=== PATIENT | female | born 1965 | race Caucasian/White ===

== ENCOUNTER 2017-10-06 12:03 | Emergency (ER) | payer SELFPAY ==
[~2017-10-06] VITALS: Ht 182.9 cm; Wt 72.6 kg
[~2017-10-06 12:03] MED LIST: PLAQUENIL PO
[2017-10-06 12:50] LABS: BASOPHILS % (AUTO) 0.6 % (0.0-2.0); EOSINOPHILS # (AUTO) 0.1 K/uL (0.0-0.7); EOSINOPHILS % (AUTO) 1.6 % (0.0-7.0); HEMOGLOBIN 13.8 g/dL (10.9-14.3); LYMPHOCYTES # (AUTO) 1.3 K/uL (20.0-40.0); LYMPHOCYTES % (AUTO) 35.7 % (20.5-51.5); MEAN CORPUSCULAR HEMOGLOBIN 34.5 uug (24.7-32.8); MEAN CORPUSCULAR HGB CONC 35 g/dL (32.3-35.6); MEAN CORPUSCULAR VOLUME 100.1 fL (75.5-95.3); MONOCYTES # (AUTO) 0.3 K/uL (2.0-10.0); MONOCYTES % (AUTO) 8.8 % (0.0-11.0); NEUTROPHILS % (AUTO) 53.3 % (38.5-71.5); PLATELET COUNT (AUTO) 234 K/uL (179-408); RED BLOOD CELL COUNT(AUTO) 3.99 MIL/uL (3.63-4.92); WHITE BLOOD COUNT (AUTO) 3.7 K/uL (3.8-11.8)
[2017-10-06 12:56] LABS: *BILIRUBIN,URIN NEGATIVE (NEGATIVE); *BLOOD, URINE NEGATIVE (NEGATIVE); *CLARITY,URINE CLEAR (CLEAR); *COLOR,URINE LIGHT YELLOW (YELLOW); *KETONES,URINE NEGATIVE (NEGATIVE); *PROTEIN,URINE NEGATIVE (NEGATIVE); *UROBILINOGEN,URINE 0.2 E.U./dl (NORMAL); LEUKOCYTE ESTERASE ,URINE NEGATIVE (NEGATIVE); NITRITE, URINE NEGATIVE (NEGATIVE); UGLUCOSE NEGATIVE (NEGATIVE)
[2017-10-06 13:01] LABS: CARBON DIOXIDE 27 mmol/L (21-32); CHLORIDE 105 mmol/L (98-107); CREATININE 0.6 mg/dL (0.6-1.3); GLUCOSE 93 mg/dL (74-106); UREA NITROGEN, BLOOD 9 mg/dL (7-18)
[2017-10-06 13:02] LABS: ETHANOL 375 MG/DL (0-0)
[2017-10-06 13:05] LABS: ALANINE AMINOTRANSFERASE 38 U/L (14-59); ALKALINE PHOSPHATASE 71 U/L (50-136); ASPARTATE AMINOTRANSFERASE 39 U/L (15-37); BILIRUBIN,DIRECT 0.1 mg/dL (0.0-0.2); BILIRUBIN,TOTAL 0.2 mg/dL (0.2-1.0); TOTAL PROTEIN, SERUM 8.1 g/dL (6.4-8.2)
[2017-10-06 13:06] LABS: ACETAMINOPHEN < 2.0 ug/mL (10-30)
[2017-10-06 13:24] LABS: *AMPHETAMINE, URINE NEGATIVE (NEGATIVE); *BARBITURATE, URINE NEGATIVE (NEGATIVE); *CANNABINOID, URINE NEGATIVE (NEGATIVE); *COCCAINE, URINE NEGATIVE (NEGATIVE); *OPIATE, URINE NEGATIVE (NEGATIVE); *PHENCYCLIDINE SCREEN,URINE NEGATIVE (NEGATIVE)
[2017-10-06 13:28] LABS: BACTERIA,URINE MODERATE /HPF (NONE SEEN); MUCUS,URINE FEW /LPF (0-FEW); RBC,URINE 0-3 /HPF (0-3); SQUAMOUS EPITHELIAL CELL,UR FEW /HPF (NONE SEEN); WBC,URINE 0-3 /HPF (0-3)
--- NOTE | 2017-10-06 14:21 | NUR ---
Patient discharged to home in stable conditon & steady gait. Written and verbal after care instructions given to patient and patient's sister. Patient and sister verbalized understanding of instructions.
== END 2017-10-06 14:25 | disposition home or self-care (01) ==
LOC: ER 12:04
DX: F10.10 Alcohol abuse, uncomplicated (principal); Z88.8 Allergy status to other drugs, medicaments and biological substances; Z79.899 Other long term (current) drug therapy
CPT/HCPCS: 36415; 70450; 80048; 80076; 80307; 81001; 85025; 93005; 99285; A4663; G0480 ×2; G0481